=== PATIENT | female | born 1980 | race Caucasian/White ===

== ENCOUNTER → 2016-12-19 | Outpatient (CLI) | payer BC ==
[~2016-12-19] MED LIST: PREN1TAB27 PO
[2016-12-19 15:04] LABS: HEMATOCRIT 40.5 % (34.6-47.8); HEMOGLOBIN 13.6 g/dL (11.7-16.4); WHITE BLOOD COUNT 10.1 x10^3/uL (3.4-10)
== END | disposition home or self-care (01) ==
LOC: STAR 13:59
PROVIDERS: ATTEND Obstetrics & Gynecology
DX: N84.0 Polyp of corpus uteri (principal); N92.0 Excessive and frequent menstruation with regular cycle; Z79.899 Other long term (current) drug therapy
CPT/HCPCS: 36415; 81001; 84703; 85025; 87086

== ENCOUNTER 2017-01-01 05:40 | Day surgery (SDC) | payer BC ==
[2016-12-19 14:26] VITALS: BP 121/84
[~2017-01-01] VITALS: Ht 162.6 cm; Wt 71.1 kg
[2017-01-01] MEDS ORDERED: LIDOCAINE 1%, 2ML ONE (06:13)
[2017-01-01] MEDS ORDERED: LACTATED RINGERS 1,000 ML IV SCH (06:37)
[2017-01-01] MEDS ORDERED: FENTANYL PF 100 MCG/2ML ONE ×2 (06:51)
[2017-01-01] MEDS ORDERED: MIDAZOLAM 1 MG/ML, 2ML ONE (06:51)
[2017-01-01] MEDS ORDERED: PROPOFOL 10 MG/ML, 20ML ONE (06:53)
[2017-01-01] MEDS ORDERED: DEXAMETHASONE 4 MG/ML, 1ML ONE ×2 (06:54)
[2017-01-01] MEDS ORDERED: ONDANSETRON 2MG/ML, 2ML ONE (06:54)
[2017-01-01] MEDS ORDERED: CEFAZOLIN 1,000 MG ONE ×2 (06:55→06:56)
[2017-01-01] MEDS ORDERED: LIDOCAINE 1%, 2ML SQ PRN (07:00)
[2017-01-01] MEDS ORDERED: SILVER NITRATE STICK TP ONE (07:09)
[2017-01-01 07:15] LABS: HCG UR LOT HCG7030192
[2017-01-01 07:20] LABS: HCG UR OBC PASS
[2017-01-01] MEDS ORDERED: HYDROmorphone 1 MG/ML, 1ML IV PRN (07:30)
[2017-01-01] MEDS ORDERED: MEPERIDINE/PF 25MG/0.5ML IVPush PRN (07:30)
[2017-01-01] MEDS ORDERED: ACETAMINOPHEN 325 MG TABLET PO PRN (07:30)
[2017-01-01] MEDS ORDERED: ONDANSETRON 2MG/ML, 2ML IVPush PRN (07:30)
[2017-01-01] MEDS ORDERED: FENTANYL PF 100 MCG/2ML IV PRN (07:30)
[2017-01-01] MEDS ORDERED: PROMETHAZINE 25 MG/ML, 1ML IV PRN (07:30)
[2017-01-01] MEDS ORDERED: OXYcodone 5 MG/5 ML ORAL.SOL UDC PO PRN (07:30)
[2017-01-01] MEDS ORDERED: ACETAMINOPHEN 650 MG/20.3 ML UDC ONE (08:06)
== END 2017-01-01 09:45 ==
LOC: OUT 05:40
DX: N84.0 Polyp of corpus uteri (principal); N93.9 Abnormal uterine and vaginal bleeding, unspecified; N92.0 Excessive and frequent menstruation with regular cycle; F32.9 Major depressive disorder, single episode, unspecified
CPT/HCPCS: 58558; 81025; 88305; J0690; J1100; J2250; J2405; J2704; J3010; J3490; J7120

== ENCOUNTER → 2020-09-27 | Outpatient (CLI) | payer BC | END | disposition home or self-care (01) | LOC: CFH 12:37 → EDSTATUS 13:00 | PROVIDERS: ATTEND Obstetrics & Gynecology | DX: Z12.31 Encounter for screening mammogram for malignant neoplasm of breast (principal) | CPT/HCPCS: 77063; 77067 ==